=== PATIENT | male | born 1940 | race Caucasian/White ===

== ENCOUNTER 2017-10-23 14:48 | Emergency (ER) | payer MEDICARE, OTHER ==
--- NOTE | 2017-10-23 15:15 | ED Physician Documentation ---
PD HPI CHEST PAIN - Stated complaint Stated Complaint: CHEST PX - Chief complaint Chief Complaint: Cardiac - History obtained from History obtained from: Patient - History of Present Illness Timing - onset: Other (He has been under a lot of personal stress lately, his daughter recently and has to take care of his grandson. The last 2 weeks he has had very mild exertional chest pain that goes away quickly when he stops exerting himself. It is a substernal pressure that is too mild to characterize otherwise. There is no radiation or shortness of breath with it. There is no chest pain currently. He has a history of chronic atrial fibrillation on warfarin. No history of coronary disease.) Review of Systems Constitutional: denies: Fever, Chills Cardiac: denies: Palpitations, Pedal edema, Calf pain Respiratory: denies: Dyspnea, Cough GI: denies: Abdominal Pain PD PAST MEDICAL HISTORY - Past Medical History Cardiovascular: Hypertension, Atrial fibrillation Respiratory: None Endocrine/Autoimmune: Type 1 diabetes, HyPOthyroidism GI: None : None HEENT: Glaucoma Psych: None Musculoskeletal: None - Past Surgical History Past Surgical History: No General: Hiatal hernia repair, Colonoscopy - Present Medications Home Medications: Ambulatory Orders Medication Instructions Recorded Confirmed Insulin Glargine,Hum.rec.anlog 20 unit SQ BID 02/08/13 10/26/14 [Lantus] Levothyroxine Sodium [Synthroid] 88 mcg PO DAILY 02/08/13 10/26/14 Metformin HCl [Glucophage] 500 mg PO BID 02/08/13 10/26/14 Warfarin Sodium [Coumadin] 5 mg PO DAILY 02/08/13 10/26/14 Carvedilol 25 mg PO DAILY 10/26/14 10/26/14 Losartan [Cozaar] 100 mg PO DAILY 10/26/14 10/26/14 Nitroglycerin 0.4 mg SL ONCE #1 bot 10/23/17 - Allergies Allergies/Adverse Reactions: Allergies Allergy/AdvReac Type Severity Reaction Status Date / Time Shrimp Allergy Mild Nausea Uncoded 10/23/17 15:02 - Social History Does the pt smoke?: No Smoking Status: Former smoker Does the pt drink ETOH?: No PD ED PE NORMAL - Vitals Vital signs reviewed: Yes - General General: Alert and oriented X 3, No acute distress - HEENT HEENT: PERRL, Pharynx benign - Neck Neck: Supple, no meningeal sign, No bony TTP - Cardiac Cardiac: Other (Irregularly irregular without murmur) - Respiratory Respiratory: No respiratory distress, Clear bilaterally - Abdomen Abdomen: Non tender - Extremities Extremities: No edema, No calf tenderness / cord - Neuro Neuro: Alert and oriented X 3, Normal speech - Psych Psych: Normal mood, Normal affect Results - Vitals Vitals: Vital Signs - 24 hr 10/23/17 10/23/17 14:56 15:15 Temperature 36.1 C L Heart Rate 73 82 Respiratory 16 16 Rate Blood Pressure 171/71 H 176/90 H O2 Saturation 97 98 Oxygen O2 Source Room air - EKG (time done) 1459 Rate: Rate (enter#) (77) Rhythm: Atrial fibrillation [place]: Normal Intervals: Other (LAFB) Ischemia: Normal ST segments Computer interpretation: Agree with computer - Labs Labs: Laboratory Tests 10/23/17 10/23/17 10/23/17 15:21 15:21 15:21 WBC 9.0 RBC 4.84 Hgb 14.5 Hct 43.9 MCV 90.8 MCH 30.0 MCHC 33.1 RDW 13.6 Plt Count 206 MPV 6.9 L Neut # 5.4 Lymph # 2.8 Keith # 0.6 Eos # 0.2 Baso # 0.0 Absolute Nucleated RBC 0.00 Nucleated RBC % 0.0 PT INR Sodium 137 Potassium 4.2 Chloride 102 Carbon Dioxide 27 Anion Gap 8.0 BUN 16 Creatinine 0.9 Estimated GFR (MDRD) 81 L Glucose 90 Calcium 9.3 Total Bilirubin 0.8 AST 29 ALT 29 Alkaline Phosphatase 47 Troponin I < 0.04 Total Protein 7.8 Albumin 4.5 Globulin 3.3 Albumin/Globulin Ratio 1.4 Lipase 34 10/23/17 15:21 WBC RBC Hgb Hct MCV MCH MCHC RDW Plt Count MPV Neut # Lymph # Keith # Eos # Baso # Absolute Nucleated RBC Nucleated RBC % PT 45.6 H INR 4.3 H Sodium Potassium Chloride Carbon Dioxide Anion Gap BUN Creatinine Estimated GFR (MDRD) Glucose Calcium Total Bilirubin AST ALT Alkaline Phosphatase Troponin I Total Protein Albumin Globulin Albumin/Globulin Ratio Lipase - Rads (name of study) CXR Radiology: EMP read contemporaneously (Mild cardiomegaly, no acute disease.) PD MEDICAL DECISION MAKING - ED course ED course: 77-year-old gentleman with history of atrial fibrillation but no history of coronary disease presents with exertional chest pain for 2 weeks that is not active now and at its worst is mild. He is he has a normal EKG except for A. fib and negative biomarkers. I spoke with Dr. Ochoa circulation worker for his physician they will expedite a stress test. Departure - Departure Disposition: 01 Home, Self Care Clinical Impression: Supratherapeutic INR Chest pain Qualifiers: Chest pain type: unspecified Qualified Code(s): R07.9 - Chest pain, unspecified Atrial fibrillation Qualifiers: Atrial fibrillation type: chronic Qualified Code(s): I48.2 - Chronic atrial fibrillation Condition: Good Record reviewed to determine appropriate education?: Yes Instructions: Nitroglycerin Long Act Dc, Angina Dc Prescriptions: Nitroglycerin 0.4 mg SL ONCE #1 bot Comments: Dr Shelley's office should be calling you to arrange for a stress test. Continue your meds except skip your coumadin tonight because your INR is 4.3. Return if worse or for persistent chest pain.
[2017-10-23 15:28] LABS: BASOPHILS % (AUTO) 0.3 %; EOSINOPHILS # (AUTO) 0.2 10^3/uL (0.0-0.7); EOSINOPHILS % (AUTO) 1.8 %; HGB - HEMOGLOBIN 14.5 g/dL (14.0-18.0); LYMPHOCYTES # (AUTO) 2.8 10^3/uL (1.5-3.5); LYMPHOCYTES % (AUTO) 30.9 %; MEAN CORPUSCULAR HGB CONC 33.1 g/dL (32.0-36.0); MEAN CORPUSCULAR VOLUME 90.8 fL (80.0-94.0); MEAN PLATELET VOLUME 6.9 fL (7.4-11.4); MONOCYTES # (AUTO) 0.6 10^3/uL (0.0-1.0); MONOCYTES % (AUTO) 7.1 %; NEUTROPHILS # (AUTO) 5.4 10^3/uL (1.5-6.6); NEUTROPHILS % (AUTO) 59.9 %; PLT - PLATELET COUNT 206 10^3/uL (130-450); RED BLOOD COUNT 4.84 10^6/uL (4.70-6.10); RED CELL DISTRIBUTION WIDTH 13.6 % (12.0-15.0)
[2017-10-23 15:33] VITALS: BP 176/90
[2017-10-23 15:34] LABS: INR 4.3 (0.8-1.2); PT - PROTHROMBIN TIME 45.6 secs (9.9-12.6)
[2017-10-23 15:41] LABS: ALBUMIN 4.5 g/dL (3.2-5.5); ALBUMIN/GLOBULIN RATIO 1.4 (1.0-2.2); BILIRUBIN,TOTAL 0.8 mg/dL (0.2-1.0); CALCIUM 9.3 mg/dL (8.5-10.3); CREATININE 0.9 mg/dL (0.6-1.2); TOTAL PROTEIN 7.8 g/dL (6.7-8.2)
--- NOTE | 2017-10-23 15:45 | XRAY Preliminary Report ---
Exam: XR CHEST 2 VIEW X-RAY IMPRESSION: Mild cardiomegaly. [facility] SITE ID: [id number]
--- NOTE | 2017-10-23 15:49 | XRAY Report ---
EXAM: CHEST RADIOGRAPHY EXAM DATE: 10/23/2017 03:36 PM. CLINICAL HISTORY: Chest pain, short of breath. COMPARISON: 02/09/2013. TECHNIQUE: 2 views. FINDINGS: Lungs/Pleura: 4 mm calcified granuloma left upper lobe. No new focal opacities evident. No pleural ef fusion. No pneumothorax. Normal volumes. Mediastinum: Stable mild cardiomegaly. No mediastinal shift. Other: None. IMPRESSION: Mild cardiomegaly. [facility] Referring Provider Line: [phone] SITE ID: [id number]
== END 2017-10-23 16:05 | disposition home or self-care (01) ==
LOC: ED 14:48
DX: R07.9 Chest pain, unspecified (principal); I48.2 Chronic atrial fibrillation; E10.9 Type 1 diabetes mellitus without complications; E03.9 Hypothyroidism, unspecified; I10 Essential (primary) hypertension; Z87.891 Personal history of nicotine dependence; Z79.01 Long term (current) use of anticoagulants
CPT/HCPCS: 36415; 71046; 80053; 83690; 84484; 85025; 85610; 93005; 99283; 99284

== ENCOUNTER 2017-11-20 05:21 | Observation (INO) | payer MEDICARE, OTHER ==
[2017-11-20] MEDS ORDERED: IPRATROPIUM/ALBUTEROL 3 ML NEB INH STA (05:27)
[2017-11-20] MEDS ORDERED: SODIUM CHLORIDE 0.9% 1,000 ML IV ONE (05:35)
[2017-11-20 05:42] LABS: BASOPHILS # (AUTO) 0.1 10^3/uL (0.0-0.1); BASOPHILS % (AUTO) 0.7 %; EOSINOPHILS # (AUTO) 0.1 10^3/uL (0.0-0.7); HGB - HEMOGLOBIN 13.1 g/dL (14.0-18.0); LYMPHOCYTES % (AUTO) 13.5 %; MEAN CORPUSCULAR HEMOGLOBIN 30.4 pg (27.0-31.0); MEAN CORPUSCULAR HGB CONC 33.1 g/dL (32.0-36.0); MEAN CORPUSCULAR VOLUME 91.8 fL (80.0-94.0); MEAN PLATELET VOLUME 6.6 fL (7.4-11.4); MONOCYTES # (AUTO) 1.3 10^3/uL (0.0-1.0); NEUTROPHILS # (AUTO) 11.1 10^3/uL (1.5-6.6); NEUTROPHILS % (AUTO) 75.8 %; PLT - PLATELET COUNT 264 10^3/uL (130-450); RED BLOOD COUNT 4.32 10^6/uL (4.70-6.10); RED CELL DISTRIBUTION WIDTH 13.5 % (12.0-15.0); WHITE BLOOD COUNT 14.7 x10^3/uL (4.8-10.8)
[2017-11-20 05:56] LABS: ALBUMIN 3.5 g/dL (3.2-5.5); ALBUMIN/GLOBULIN RATIO 0.9 (1.0-2.2); BILIRUBIN,TOTAL 0.8 mg/dL (0.2-1.0); CALCIUM 8.3 mg/dL (8.5-10.3); CREATININE 1.1 mg/dL (0.6-1.2); TOTAL PROTEIN 7.3 g/dL (6.7-8.2)
--- NOTE | 2017-11-20 06:11 | XRAY Report ---
Procedure Date: 11/20/2017 Accession Number: [id number] / [id number] Procedure: XR - Chest 2 View X-Ray CPT Code: 73455 FULL RESULT: EXAM: CHEST RADIOGRAPHY EXAM DATE: 11/20/2017 05:47 AM. CLINICAL HISTORY: Non productive cough for 4 days. COMPARISON: 10/23/2017. TECHNIQUE: 2 views. FINDINGS: Lungs/Pleura: Bilateral interstitial and airspace opacities, right worse than left. Small right pleural effusion. Pulmonary vascular congestion. No pneumothorax. Mediastinum: Heart size upper normal. Aortic atherosclerosis. Other: None. IMPRESSION: 1. Borderline cardiomegaly with pulmonary vascular congestion. 2. Asymmetric pulmonary opacities, right worse than left, likely representing pulmonary edema. Infiltrate not entirely excluded. 3. Small right pleural effusion. [facility]
[2017-11-20] MEDS ORDERED: ALBUTEROL NEB 2.5 MG/3 ML INH STA (06:13)
[2017-11-20] MEDS ORDERED: methylPREDNISolone SUCCINATE 125 MG/2 ML VIAL IVP STA (06:13)
--- NOTE | 2017-11-20 06:20 | ED Physician Documentation ---
PD HPI DYSPNEA - Stated complaint Stated Complaint: DIFF BREATHING - Chief complaint Chief Complaint: Resp - History obtained from History obtained from: Patient - History of Present Illness Timing - onset: How many days ago (4) Timing - details: Gradual onset, Still present Inciting event(s): URI Worsened by: Exertion Associated symptoms: Cough, Wheezing. No: Fever, Chest pain / discomfort Similar symptoms before: No diagnosis Recently seen: Not recently seen - Additional information Additional information: Patient is a 77 year old male with a history of afib, angina and 20 pack year history who is presenting to the emergency department for cough and shortness of breath. patient states that the symptoms have been going on for the last 4 days. it has become progressively worse today so he finally decided to come in. Review of Systems Constitutional: denies: Fever, Chills Eyes: reports: Reviewed and negative Ears: reports: Reviewed and negative Cardiac: denies: Chest pain / pressure, Pedal edema Respiratory: reports: Dyspnea, Cough, Wheezing GI: denies: Nausea, Vomiting Skin: denies: Rash, Lesions Immunocompromised: denies: Immunocompromised PD PAST MEDICAL HISTORY - Past Medical History Past Medical History: Yes Cardiovascular: Hypertension, Atrial fibrillation Respiratory: Pneumonia Endocrine/Autoimmune: Type 2 diabetes, HyPOthyroidism GI: None : None HEENT: Glaucoma Psych: None Musculoskeletal: None - Past Surgical History Past Surgical History: Yes General: Hiatal hernia repair, Colonoscopy - Present Medications Home Medications: Ambulatory Orders Medication Instructions Recorded Confirmed Insulin Glargine,Hum.rec.anlog 20 unit SQ BID 02/08/13 10/26/14 [Lantus] Levothyroxine Sodium [Synthroid] 88 mcg PO DAILY 02/08/13 10/26/14 Metformin HCl [Glucophage] 500 mg PO BID 02/08/13 10/26/14 Warfarin Sodium [Coumadin] 5 mg PO DAILY 02/08/13 10/26/14 Carvedilol 25 mg PO DAILY 10/26/14 10/26/14 Losartan [Cozaar] 100 mg PO DAILY 10/26/14 10/26/14 Nitroglycerin 0.4 mg SL ONCE #1 bot 10/23/17 - Allergies Allergies/Adverse Reactions: Allergies Allergy/AdvReac Type Severity Reaction Status Date / Time Shrimp Allergy Mild Nausea Uncoded 10/23/17 15:02 - Social History Does the pt smoke?: No Smoking Status: Current every day smoker Does the pt drink ETOH?: No Does the pt have substance abuse?: No - Immunizations Immunizations are current?: Yes - POLST Patient has POLST: No PD ED PE NORMAL - Vitals Vital signs reviewed: Yes - General General: Alert and oriented X 3 - HEENT HEENT: Atraumatic - Abdomen Abdomen: Soft, Non tender, Non distended - Derm Derm: Normal color - Extremities Extremities: No deformity - Neuro Neuro: Alert and oriented X 3, No motor deficit Eye Opening: Spontaneous Motor: Obeys Commands Verbal: Oriented GCS Score: 15 PD ED PE EXPANDED - HEENT HEENT: Dry mucous membranes - Cardiac Cardiac: Irregularly irregular - Respiratory Respiratory: Accessory mm use, Wheezing, Decreased breath sounds, Other ( wheezing bilaterally upper navas, decreased breath sounds at bases) Results - Vitals Vitals: Vital Signs - 24 hr 11/20/17 11/20/17 11/20/17 05:26 05:42 05:51 Temperature 36.5 C Heart Rate 85 96 100 Respiratory 22 22 22 Rate Blood Pressure 150/94 H O2 Saturation 95 11/20/17 06:02 Temperature Heart Rate 95 Respiratory 27 H Rate Blood Pressure 124/77 O2 Saturation 93 Oxygen O2 Source Room air - EKG (time done) 0534 Rate: Rate (enter#) (109) Rhythm: Atrial fibrillation [place]: LAD Compare to prior EKG: Changed from prior EKG - Labs Labs: Laboratory Tests 11/20/17 11/20/17 11/20/17 05:36 05:36 05:36 WBC 14.7 H RBC 4.32 L Hgb 13.1 L Hct 39.6 L MCV 91.8 MCH 30.4 MCHC 33.1 RDW 13.5 Plt Count 264 MPV 6.6 L Neut # (Auto) 11.1 H Lymph # (Auto) 2.0 Harper # (Auto) 1.3 H Eos # (Auto) 0.1 Baso # (Auto) 0.1 Absolute Nucleated RBC 0.00 Nucleated RBC % 0.0 Sodium 131 L Potassium 4.3 Chloride 102 Carbon Dioxide 20 L Anion Gap 9.0 BUN 25 H Creatinine 1.1 Estimated GFR (MDRD) 65 L Glucose 188 H Lactic Acid Calcium 8.3 L Total Bilirubin 0.8 AST 19 ALT 21 Alkaline Phosphatase 53 Troponin I 0.04 B-Natriuretic Peptide Total Protein 7.3 Albumin 3.5 Globulin 3.8 Albumin/Globulin Ratio 0.9 L Lipase 39 11/20/17 11/20/17 05:36 05:36 WBC RBC Hgb Hct MCV MCH MCHC RDW Plt Count MPV Neut # (Auto) Lymph # (Auto) Harper # (Auto) Eos # (Auto) Baso # (Auto) Absolute Nucleated RBC Nucleated RBC % Sodium Potassium Chloride Carbon Dioxide Anion Gap BUN Creatinine Estimated GFR (MDRD) Glucose Lactic Acid 1.6 Calcium Total Bilirubin AST ALT Alkaline Phosphatase Troponin I B-Natriuretic Peptide 399 H Total Protein Albumin Globulin Albumin/Globulin Ratio Lipase - Rads (name of study) chest x-ray Radiology: Final report received (pulmonary vascular congestion, infiltrate) PD MEDICAL DECISION MAKING - ED course Complexity details: reviewed old records, reviewed results, re-evaluated patient , considered differential, d/w patient, d/w strategic solutions consultant ED course: Patient was seen and examined at bedside. Patient was started on breathing treatments. ekg was performed and showed a fib. IV access was gained and labs were drawn. chest x-ray was ordered. When patient returned from imaging results were reviewed. Patient had a ride sided infiltrate. Cultures were drawn. patient was treated with rocephin, solumedrol and an additional duoneb was ordered. Case was discussed with the hospitalist. - Sepsis Event Vital Signs: Vital Signs - 24 hr 11/20/17 11/20/17 11/20/17 05:26 05:42 05:51 Temperature 36.5 C Heart Rate 85 96 100 Respiratory 22 22 22 Rate Blood Pressure 150/94 H O2 Saturation 95 11/20/17 06:02 Temperature Heart Rate 95 Respiratory 27 H Rate Blood Pressure 124/77 O2 Saturation 93 Oxygen O2 Source Room air Departure - Departure Disposition: ED Place in Observation Clinical Impression: Moderate COPD (chronic obstructive pulmonary disease), Pneumonia Condition: Stable
[2017-11-20] MEDS ORDERED: cefTRIAXone 1 GM in SODIUM CHLORIDE 0.9% MINIBAG 100 ML IV STA (06:22)
[2017-11-20] MEDS ORDERED: ONDANSETRON 4 MG/2 ML VIAL IVP PRN (06:25)
[2017-11-20] MEDS ORDERED: oxyCODONE 5 MG TABLET PO PRN (06:25)
[2017-11-20] MEDS ORDERED: ONDANSETRON ODT 4 MG TABLET TL PRN (06:25)
[2017-11-20] MEDS ORDERED: ACETAMINOPHEN 325 MG TABLET PO PRN (06:25)
[2017-11-20] MEDS ORDERED: ALBUTEROL NEB 2.5 MG/3 ML INH PRN (06:29)
[2017-11-20 07:17] LABS: INR 1.9 (0.8-1.2)
[2017-11-20] MEDS ORDERED: LEVOTHYROXINE 88 MCG TABLET PO SCH (07:30)
[2017-11-20] MEDS ORDERED: NITROGLYCERIN SL 0.4 MG TABLET SL SCH (07:45)
[2017-11-20] MEDS ORDERED: INSULIN GLARGINE HUM REC ANLOG 20 UNIT SQ SCH (09:00)
[2017-11-20] MEDS ORDERED: CARVEDILOL 12.5 MG TABLET PO SCH (09:00)
[2017-11-20] MEDS ORDERED: WARFARIN 5 MG TABLET PO SCH ×3 (09:00→12:00)
[2017-11-20 09:32] LABS: HB2 TOTAL 14.7 g/dL; HEMOGLOBIN A1C 0.79 g/dL; HEMOGLOBIN A1C % 7.1 % (4.6-6.2)
[2017-11-20] MEDS: LOSARTAN 50 MG TABLET PO SCH (11:10)
[2017-11-20] MEDS: CARVEDILOL 12.5 MG TABLET PO SCH (11:11)
[2017-11-20] MEDS: AZITHROMYCIN INJ 500 MG in SODIUM CHLORIDE 0.9% 250 ML IV SCH (11:20)
[2017-11-20] MEDS: SACCHAROMYCES BOULARDII 250 MG CAPSULE PO SCH ×2 (11:28→17:06)
[2017-11-20] MEDS: methylPREDNISolone SUCCINATE 40 MG/ML VIAL IVP SCH ×3 (11:29→21:19)
[2017-11-20] MEDS: SODIUM CHLORIDE FLUSH 0.9% 10 ML SYRINGE IVP SCH ×4 (11:29→23:53)
[2017-11-20] MEDS: ISOSORBIDE MONONITRATE ER 30 MG TABLET PO SCH (11:37)
[2017-11-20] MEDS: POLYETHYLENE GLYCOL 3350 17 GM PACKET PO SCH (11:38)
[2017-11-20] MEDS ORDERED: INSULIN ASPART 300 UNIT/3 ML PEN SUBQ SCH (12:00)
[2017-11-20] MEDS: IPRATROPIUM/ALBUTEROL 3 ML NEB INH SCH ×4 (12:15→19:09)
--- NOTE | 2017-11-20 12:33 | PROVIDER PROGRESS NOTE ---
Subjective - Prog Note Date Prog Note Date: 11/20/17 - Subjective Pt reports feeling: Improved Subjective: pt state he feel much better than yesterday. No cough, fever, chill. pt report mild wheezing inh/exh. Current Medications - Current Medications Current Medications: Active Medications Acetaminophen (Tylenol) 650 mg PO Q4HR PRN PRN Reason: Pain 1 to 4 Albuterol () 2.5 mg INH RTQ4H PRN PRN Reason: Wheezing Albuterol/Ipratropium (Duoneb) 3 ml INH RTQID HELIO Stop: 11/21/17 06:59 Last Admin: 11/20/17 12:15 Dose: 3 ml Atorvastatin Calcium (Lipitor) 20 mg PO QPM [facility] Brimonidine Tartrate (Alphagan P 0.15% Ophth Drops) 1 drops RIGHTEYE BID [facility] Carvedilol (Coreg) 25 mg PO BID [facility] Last Admin: 11/20/17 11:11 Dose: 25 mg Furosemide (Lasix) 20 mg PO DAILY [facility] Azithromycin 500 mg/ Sodium (Chloride) 250 mls @ 250 mls/hr IV Q24H [facility] Last Admin: 11/20/17 11:20 Dose: 250 mls/hr Ceftriaxone Sodium 2 gm/ (Sodium Chloride) 100 mls @ 200 mls/hr IV Q24H [facility] Insulin Aspart (Novolog) 2 - 10 unit SUBQ 0800,1200,1700,2100 HELIO PRN Reason: Protocol Insulin Aspart (Novolog) 5 unit SUBQ ONCE ONE Stop: 11/20/17 17:01 Insulin Glargine (Lantus Solostar) 25 unit SUBQ BID [facility] Isosorbide Mononitrate (Imdur) 60 mg PO DAILY [facility] Last Admin: 11/20/17 11:37 Dose: Not Given Latanoprost (Xalatan Ophth Drops) 1 drops EACHEYE QPM [facility] Levothyroxine Sodium (Synthroid) 88 mcg PO QDAC [facility] Last Admin: 11/20/17 11:12 Dose: 88 mcg Levothyroxine Sodium (Synthroid) 100 mcg PO QDAC [facility] Levothyroxine Sodium (Synthroid) 75 mcg PO QDAC [facility] Losartan Potassium (Cozaar) 100 mg PO DAILY [facility] Last Admin: 11/20/17 11:10 Dose: 100 mg Methylprednisolone (Solu-Medrol (40mg Vial)) 20 mg IVP TID [facility] Last Admin: 11/20/17 11:29 Dose: 20 mg Ondansetron HCl (Zofran Inj) 4 mg IVP Q6HR PRN PRN Reason: Nausea / Vomiting Ondansetron HCl (Zofran Odt) 4 mg TL Q6HR PRN PRN Reason: Nausea / Vomiting Oxycodone HCl (Roxicodone) 5 mg PO Q4HR PRN PRN Reason: Pain 5 to 7 Polyethylene Glycol (Miralax) 17 gm PO DAILY [facility] Last Admin: 11/20/17 11:38 Dose: Not Given Saccharomyces Boulardii (Florastor) 250 mg PO BIDWM [facility] Last Admin: 11/20/17 11:28 Dose: 250 mg Sodium Chloride (Normal Saline Flush 0.9%) 10 ml IVP PRN PRN PRN Reason: NEEDED PER PROVIDER ORDERS Sodium Chloride (Normal Saline Flush 0.9%) 10 ml IVP 0100,0900,1700 [facility] Last Admin: 11/20/17 11:29 Dose: 10 ml Timolol Maleate (Timoptic 0.5% Ophth Drops) 1 drops EACHEYE BID [facility] Warfarin Sodium (Coumadin) 2.5 mg PO .QFRIDAY [facility] Warfarin Sodium (Coumadin) 5 mg PO .[facility] [place] [facility] [place] Insulin Glargine,Hum.rec.anlog [Lantus] 50 - 70 unit SQ QPM 02/08/13 Warfarin Sodium [Coumadin] 5 mg PO .QSUMOTUWEDTHUSA 02/08/13 Carvedilol 25 mg PO BID 10/26/14 Losartan [Cozaar] 100 mg PO DAILY 10/26/14 Brimonidine 0.15% Ophth Drops [Alphagan P 0.15% Ophth Drops] 1 drops RIGHTEYE BID 11/20/17 Insulin Lispro [Humalog Kwikpen U-100] 1 - 10 unit SUBQ TID PRN 11/20/17 Isosorbide Mononitrate [Isosorbide Mononitrate ER] 60 mg PO DAILY 11/20/17 Latanoprost [Latanoprost] 1 drops EACHEYE QPM 11/20/17 Levothyroxine Sodium [Synthroid] 175 mcg PO DAILY 11/20/17 Metformin HCl [Metformin HCl] 1,000 mg PO BID 11/20/17 Simvastatin [Simvastatin] 40 mg PO QPM 11/20/17 Timolol Maleate 1 drops EACHEYE BID 11/20/17 Warfarin [Coumadin] 2.5 mg PO .QFRIDAY 11/20/17 Zolpidem Tartrate [Ambien] 10 mg PO QPM 11/20/17 Active Medications Acetaminophen (Tylenol) 650 mg PO Q4HR PRN PRN Reason: Pain 1 to 4 Albuterol () 2.5 mg INH RTQ4H PRN PRN Reason: Wheezing Albuterol/Ipratropium (Duoneb) 3 ml INH RTQID HELIO Stop: 11/21/17 06:59 Last Admin: 11/20/17 12:15 Dose: 3 ml Atorvastatin Calcium (Lipitor) 20 mg PO QPM [facility] Brimonidine Tartrate (Alphagan P 0.15% Ophth Drops) 1 drops RIGHTEYE BID [facility] Carvedilol (Coreg) 25 mg PO BID [facility] Last Admin: 11/20/17 11:11 Dose: 25 mg Furosemide (Lasix) 20 mg PO DAILY [facility] Azithromycin 500 mg/ Sodium (Chloride) 250 mls @ 250 mls/hr IV Q24H [facility] Last Admin: 11/20/17 11:20 Dose: 250 mls/hr Ceftriaxone Sodium 2 gm/ (Sodium Chloride) 100 mls @ 200 mls/hr IV Q24H [facility] Insulin Aspart (Novolog) 2 - 10 unit SUBQ 0800,1200,1700,2100 [facility] PRN Reason: Protocol Insulin Aspart (Novolog) 5 unit SUBQ ONCE ONE Stop: 11/20/17 17:01 Insulin Glargine (Lantus Solostar) 25 unit SUBQ BID [facility] Isosorbide Mononitrate (Imdur) 60 mg PO DAILY [facility] Last Admin: 11/20/17 11:37 Dose: Not Given Latanoprost (Xalatan Ophth Drops) 1 drops EACHEYE QPM [facility] Levothyroxine Sodium (Synthroid) 88 mcg PO QDAC [facility] Last Admin: 11/20/17 11:12 Dose: 88 mcg Levothyroxine Sodium (Synthroid) 100 mcg PO QDAC [facility] Levothyroxine Sodium (Synthroid) 75 mcg PO QDAC [facility] Losartan Potassium (Cozaar) 100 mg PO DAILY [facility] Last Admin: 11/20/17 11:10 Dose: 100 mg Methylprednisolone (Solu-Medrol (40mg Vial)) 20 mg IVP TID [facility] Last Admin: 11/20/17 11:29 Dose: 20 mg Ondansetron HCl (Zofran Inj) 4 mg IVP Q6HR PRN PRN Reason: Nausea / Vomiting Ondansetron HCl (Zofran Odt) 4 mg TL Q6HR PRN PRN Reason: Nausea / Vomiting Oxycodone HCl (Roxicodone) 5 mg PO Q4HR PRN PRN Reason: Pain 5 to 7 Polyethylene Glycol (Miralax) 17 gm PO DAILY [facility] Last Admin: 11/20/17 11:38 Dose: Not Given Saccharomyces Boulardii (Florastor) 250 mg PO BIDWM [facility] Last Admin: 11/20/17 11:28 Dose: 250 mg Sodium Chloride (Normal Saline Flush 0.9%) 10 ml IVP PRN PRN PRN Reason: NEEDED PER PROVIDER ORDERS Sodium Chloride (Normal Saline Flush 0.9%) 10 ml IVP 0100,0900,1700 [facility] Last Admin: 11/20/17 11:29 Dose: 10 ml Timolol Maleate (Timoptic 0.5% Ophth Drops) 1 drops EACHEYE BID [facility] Warfarin Sodium (Coumadin) 2.5 mg PO .QFRIDAY [facility] Warfarin Sodium (Coumadin) 5 mg PO .QSATSUNMONTUEWEDTHU [facility] Insulin Glargine,Hum.rec.anlog [Lantus] 50 - 70 unit SQ QPM 02/08/13 Warfarin Sodium [Coumadin] 5 mg PO .QSUMOTUWEDTHUSA 02/08/13 Carvedilol 25 mg PO BID 10/26/14 Losartan [Cozaar] 100 mg PO DAILY 10/26/14 Brimonidine 0.15% Ophth Drops [Alphagan P 0.15% Ophth Drops] 1 drops RIGHTEYE BID 11/20/17 Insulin Lispro [Humalog Kwikpen U-100] 1 - 10 unit SUBQ TID PRN 11/20/17 Isosorbide Mononitrate [Isosorbide Mononitrate ER] 60 mg PO DAILY 11/20/17 Latanoprost [Latanoprost] 1 drops EACHEYE QPM 11/20/17 Levothyroxine Sodium [Synthroid] 175 mcg PO DAILY 11/20/17 Metformin HCl [Metformin HCl] 1,000 mg PO BID 11/20/17 Simvastatin [Simvastatin] 40 mg PO QPM 11/20/17 Timolol Maleate 1 drops EACHEYE BID 11/20/17 Warfarin [Coumadin] 2.5 mg PO .QFRIDAY 11/20/17 Zolpidem Tartrate [Ambien] 10 mg PO QPM 11/20/17 Objective - Vital Signs/Intake & Output Reviewed Vital Signs: Yes Vital Signs: Vital Signs x48h Temp Pulse Pulse Resp BP BP Pulse Ox 11/20/17 11:42 36.9 C 86 16 129/71 94 11/20/17 08:41 88 18 89/57 L 91 L 11/20/17 06:57 92 23 137/74 H 94 11/20/17 06:29 91 24 Intake & Output: Intake & Output 11/17/17 11/18/17 11/19/17 11/20/17 23:59 23:59 23:59 23:59 Intake Total 1340 Balance 1340 - Objective General Appearance: positive: No acute distress, Alert. negative: Lethargic Eyes Bilateral: positive: Normal inspection, PERRL, No lid inflammation, Conjunctivae nml ENT: positive: ENT inspection nml, Pharynx nml, No signs of dehydration. negative: Purulent nasal drainage, Pharyngeal erythema, Oral lesions, Dry mucous membranes Neck: positive: Nml inspection, Thyroid nml, No JVD, Trachea midline. negative : Thyromegaly, Lymphadenopathy (R), Lymphadenopathy (L), Stiff neck, Carotid bruit, Swelling/bruising, Tracheal deviation Respiratory: positive: Chest non-tender, No respiratory distress, Breath sounds nml, Wheezes. negative: Rales, Rhonchi Cardiovascular: positive: Regular rate & rhythm, No murmur, No gallop. negative : Irregularly irregular, Extrasystoles, Tachycardia, Bradycardia, JVD present, Systolic murmur, Diastolic murmur Peripheral Pulses: 2+ Radial (R), 2+ Radial (L), 2+ Dorsalis pedis (R), 2+ Dorsalis pedis (L) Abdomen: positive: Non-tender, No organomegaly, Nml bowel sounds, No distention. negative: Tenderness, Guarding, Rebound Back: positive: Nml inspection. negative: CVA tenderness (R), CVA tenderness (L ) Skin: positive: Color nml, No rash, Warm, Dry. negative: Cyanosis, Diaphoresis , Pallor Extremities: positive: Non-tender, Full ROM, Nml appearance. negative: Calf tenderness, Joint swelling, Everton's sign/cords Neurologic/Psychiatric: positive: Oriented x3, Motor nml, Sensation nml, Mood/ affect nml. negative: Sensory loss, Facial droop, Slurred/abnml speech, Depressed mood/affect - Lab Results Fish Bones: 11/20/17 05:36 11/20/17 05:36 Other Labs: Lab Results x24hrs 11/20/17 Range/Units 11:34 POC Whole Bld Glucose 345 H (70 - 100) mg/dL ABX Reporting Has patient been on IV antibiotics over the past 48 hours?: Yes Assessment/Plan - Problem List (1) Pneumonia Impression: pt present SOB, cough , wheezing for 4 days. CXR reveals right worsening than left with possible pneumonia, pulmonary congestion, and elevated WBC Rocephin Azith Lasix 20 mg po for pulmonary congestion and wheezing albuterol, duoneb PRN O2 supplement as needed daily lab and vital monitor (2) HTN (hypertension) Impression: stable, resume home medication. vital monitor (3) Afib Impression: stable HR, continue home meds and Coumadin tele and vital monitor PT/INR daily (4) Diabetes 1.5, managed as type 2 Impression: A1C 7.1, continue slide scale continue home insulin continue hypoglycemia protocol daily lab, vital monitor (6) Hypothyroidism Impression: resume of home meds Synth check TSH (7) Glaucoma Impression: no acute complaint resume home meds
[2017-11-20] MEDS: SODIUM CHLORIDE FLUSH 0.9% 10 ML SYRINGE IVP PRN ×3 (12:36→21:19)
[2017-11-20] MEDS: BRIMONIDINE 0.15% OPHTH DROPS 5 ML RIGHTEYE SCH ×2 (12:37→21:29)
--- NOTE | 2017-11-20 12:41 | HISTORY & PHYSICAL EXAMINATION ---
DATE OF SERVICE: 11/20/2017 Physician: Annalisa Ahn MD PRIMARY CARE PROVIDER: Tray Shelley M.D. ADMITTING PROVIDER: Annalisa Ahn M.D. CHIEF COMPLAINT: Cough and shortness of breath with gurgling and whistling. HISTORY OF PRESENT ILLNESS: He is an elderly gentleman who used to smoke. Started smoking at age 6 and quit smoking at the age of 48. Smoked 1/2 pack per day. He has developed reactive airways disease since that time. He was hospitalized in 2012 for generalized weakness where he just could not get out of bed for days. He was found to have pneumonia. Since that time, he has done well. He does not take oxygen at home. Does not do nebulizers at home, but he started developing a phlegmy cough a few days ago. It has gotten increasingly worse. He finally came in today, early this morning, because the cough was so bad. He says that he has been eating okay. He has no change in bowel habits. No diarrhea, no abdominal pain. The phlegm is copious, yellow, thick. No hemoptysis. Denies fever, chills. Denies any chest pain. Denies any pedal edema or orthopnea. He does have chronic atrial fibrillation, and he states that his rate is controlled. He is not feeling any palpitations or that it is any worse than usual. He was evaluated in the emergency room by Dr. Oleary and was found to have small asymmetric opacities, right worse than left, likely representing pulmonary edema. Infiltrate is not entirely excluded. He has a small right pleural effusion. The patient does have a previous echocardiogram. It was done at [facility] and read by the [facility]. This was back in 2007. It was a technically adequate study. Left ventricle systolic function was normal. Left and right atrium were mildly dilated. He did not have any significant valvular heart disease. The echocardiogram had actually been done because he had a murmur prior to his colonoscopy that was done that year. The auto mechanic wanted to make sure there was not anything being missed. The patient states that he does have a little bit of edema every once in awhile, but is not any worse than usual. PAST MEDICAL HISTORY 1. Type 2 diabetes mellitus, with complications of neuropathy, on long-term use of Lantus. He does not have diabetic retinopathy. 2. Hypertension. 3. Chronic atrial fibrillation. 4. Hypothyroidism. 5. Right inguinal hernia repair, approximately 1992. 6. Right cataract extraction with intraocular lens implant. ALLERGIES: HE IS ALLERGIC TO SHELLFISH. MEDICATIONS 1. Carvedilol 25 mg p.o. b.i.d. 2. Lantus 20 units at night. 3. Levothyroxine 88 mcg daily. 4. Losartan 100 mg daily. 5. Metformin 500 mg p.o. b.i.d. before meals. 6. Sublingual nitroglycerin p.r.n. 7. Coumadin 5 mg daily. SOCIAL HISTORY: Born in [place]. Went into the [employer] and retired at the age of 74 and worked in [place]. He is . He came to the [place] in [place] and has been here since. 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 He currently lives alone. Started smoking at the age of 6. Quit smoking at the age of 48 and smoked half a pack per day. He says that he never had a problem with alcohol abuse. Never had any problems with recreational substance abuse. FAMILY HISTORY 1. Mom around age 83 of old age. Dad in his 40s of bilateral pneumonia while in retirement. Apparently, he is a [employer] socialist [employer] party member ([employer]) and was not a popular man in the day. 2. One brother at a young age of unknown causes. His sister a month and a half ago, falling off a porch and breaking her neck. She was 82 years old. 3. Two kids are healthy. REVIEW OF SYSTEMS CONSTITUTIONAL: He denies any generalized weight loss, changes, no fevers, sweats. HEENT: Denies blurred vision, headaches, problems with swallowing. Dentition is getting to be a problem. No facial dysesthesia. A little deaf. PULMONARY: Chronic daily shortness of breath that sometimes limits him if he wants to walk too far, but he can still do all of his activities of daily living. Still takes care of himself and he does not feel like he needs help. CARDIOVASCULAR: Has been given nitroglycerin for chest pain that he has never used. Has chronic mild pedal edema. Denies orthopnea. GASTROINTESTINAL: Occasional dyspepsia, but no bloody diarrhea. No change in bowel habits. Colonoscopy in the past has been negative. GENITOURINARY: Nocturia, decreased stream, but no urgency, frequency, incontinence. No hematuria, no flank pain. JOINTS: Stable. Usual morning stiffness, but nothing severe. Hands worse. Occasionally back. SKIN: Had a weird rash years ago. Dr. Shelley tried stopping different drugs, and they never found out what it was, but it responded to steroids. He has no new lesions, no moles. PSYCHIATRIC: Occasional depression. Occasional loneliness. Not suicidal. CENTRAL NERVOUS SYSTEM: Denies syncope, seizures, memory loss. PHYSICAL EXAMINATION: He is seen in the emergency room with a temperature 36.5, pulse rate is 95 and irregular, blood pressure is 124/77, respirations are 27, and he is 93% on room air. The 27 is because I am talking to him. When he is not talking and he is at rest, he is at about 22. GENERAL: Shows him to be a short-statured portly elderly gentleman with a armendariz, pursed lip breathing because of my making him speak during his exam. HEAD AND NECK: Unremarkable. Lips are a little dry. Oral mucosa is little dry, but pink. Pupils are reactive. Sclerae are nonicteric. No facial asymmetry. Voice is normal. He does have a nasal tone of voice. No rhinorrhea, no coryza. NECK: Supple with shotty adenopathy. No goiter or bruits or JVD. LUNGS: In a barrel chest. He has diffuse scattered wheezing. While he has mild tachypnea, there is no use of accessory muscles. He is comfortable speaking to me in bed and speaking 1-2 sentences, but is still pursed lip breathing. CARDIAC: Irregular rate and rhythm with a flow murmur. No rubs or gallops. ABDOMEN: Protuberant, soft, obese, nontender. Normal bowel sounds. EXTREMITIES: Warm. He has light edema. Mainly manifested by the compression of the socks, but otherwise, nonpitting. No clubbing or cyanosis. NEUROLOGIC: He is alert and oriented to person, place, and time, follows 2 step commands. Able to sit up on the bed, but it increases his respiratory rate. No focal deficits. LABORATORY DATA 1. Sodium is 131. 2. Potassium 4.3. 3. BUN 25. 4. Creatinine 1.1. 5. Lactic acid 1.6. 6. BNP 399. 7. White cell count 14.7. 8. Hemoglobin 13.1, hematocrit 39.6, platelets 264. 9. Chest x-ray shows small right pleural effusion, infiltrates at both lungs, suggestive of possible pulmonary edema, but a right lung pneumonia cannot be excluded since interstitial markings appear worse on the right than the left. ASSESSMENT/PLAN: Community-acquired pneumonia. This gentleman has had a change in phlegm, increasing shortness of breath. He is compliant with his medications, so in the differential of CHF versus pneumonia, I would lean more towards pneumonia because of the phlegm, elevated white cell count. PLAN 1. Place in observation. The patient is adamant that he will be leaving tomorrow for his twin granddaughters' graduation from high school and has to be there in the evening. He denies any problems with appetite. He is able to take care of himself, so I agree with him that he may be able to leave tomorrow after 1 midnight. a. Outpatient: The patient will be admitted less than 96 hours. b. Blood cultures have been done before antibiotic started. c. Start azithromycin and Rocephin. d. Send sputum cultures. 2. Chronic obstructive pulmonary disease with acute exacerbation. No hypoxia. a. Start DuoNeb q. 6 hours and add albuterol 4 hours p.r.n., IV steroids with Solu-Medrol 40 IV every 8 hours. 3. History of atrial fibrillation. a. Check INR. b. Continue Coumadin and monitor INR. Make sure he does not get prolonged in the face of use of antibiotics, especially azithromycin. Rate is currently controlled. 4. Shortness of breath with pleural effusion. Previous echo has shown intact left ventricle. BNP mildly elevated at over 300. a. We will check echo this admission. 5. Diabetes mellitus. a. Resume usual Lantus, especially in the face of steroids, plus sliding scale NovoLog. b. Void metformin while he is here. 6. Deep venous thrombosis prophylaxis with DANNY hose. Encourage the patient to ambulate in the room. 7. FULL CODE STATUS. TD: 11/20/2017 07:16
[2017-11-20] MEDS: FUROSEMIDE 20 MG TABLET PO SCH (13:26)
[2017-11-20] MEDS ORDERED: INSULIN ASPART 300 UNIT/3 ML PEN SUBQ ONE (17:00)
[2017-11-20] MEDS: INSULIN ASPART 300 UNIT/3 ML PEN SUBQ SCH ×2 (17:05→21:56)
[2017-11-20] MEDS ORDERED: ATORVASTATIN 10 MG TABLET PO SCH (21:00)
[2017-11-20] MEDS ORDERED: LATANOPROST 0.005% OPHTH DROPS EACHEYE SCH (21:00)
[2017-11-20] MEDS: INSULIN GLARGINE 300 UNIT/3 ML PEN SUBQ SCH (21:21)
[2017-11-20] MEDS ORDERED: SODIUM CHLORIDE FLUSH 0.9% 10 ML SYRINGE ONE (21:22)
[2017-11-20] MEDS ORDERED: INSULIN REGULAR HUMAN 100 UNIT/1 ML 10 ML MDV IVP STA (21:26)
[2017-11-20] MEDS: TIMOLOL 0.5% OPHTH DROPS EACHEYE SCH (21:29)
[2017-11-21] MEDS: methylPREDNISolone SUCCINATE 40 MG/ML VIAL IVP SCH (05:41)
[2017-11-21] MEDS: SODIUM CHLORIDE FLUSH 0.9% 10 ML SYRINGE IVP PRN (05:45)
[2017-11-21 05:54] LABS: BASOPHILS % (AUTO) 0.2 %; HGB - HEMOGLOBIN 11.9 g/dL (14.0-18.0); LYMPHOCYTES # (AUTO) 1.5 10^3/uL (1.5-3.5); LYMPHOCYTES % (AUTO) 10.5 %; MEAN CORPUSCULAR HEMOGLOBIN 30.4 pg (27.0-31.0); MEAN CORPUSCULAR HGB CONC 33.6 g/dL (32.0-36.0); MEAN CORPUSCULAR VOLUME 90.5 fL (80.0-94.0); MEAN PLATELET VOLUME 6.9 fL (7.4-11.4); MONOCYTES # (AUTO) 0.8 10^3/uL (0.0-1.0); MONOCYTES % (AUTO) 5.9 %; NEUTROPHILS # (AUTO) 11.7 10^3/uL (1.5-6.6); NEUTROPHILS % (AUTO) 83.4 %; PLT - PLATELET COUNT 261 10^3/uL (130-450); RED BLOOD COUNT 3.92 10^6/uL (4.70-6.10); RED CELL DISTRIBUTION WIDTH 13.3 % (12.0-15.0)
[2017-11-21 05:57] LABS: CALCIUM 8.6 mg/dL (8.5-10.3); CREATININE 0.8 mg/dL (0.6-1.2)
[2017-11-21] MEDS ORDERED: cefTRIAXone 2 GM in SODIUM CHLORIDE 0.9% MINIBAG 100 ML IV SCH (06:00)
[2017-11-21] MEDS ORDERED: LEVOTHYROXINE 100 MCG TABLET PO SCH (07:00)
[2017-11-21] MEDS ORDERED: LEVOTHYROXINE 75 MCG TABLET PO SCH (07:00)
[2017-11-21 07:43] VITALS: BP 126/82
[2017-11-21] MEDS: LOSARTAN 50 MG TABLET PO SCH (08:00)
[2017-11-21] MEDS: ISOSORBIDE MONONITRATE ER 30 MG TABLET PO SCH (08:00)
[2017-11-21] MEDS: SACCHAROMYCES BOULARDII 250 MG CAPSULE PO SCH (08:01)
[2017-11-21] MEDS: FUROSEMIDE 20 MG TABLET PO SCH (08:01)
[2017-11-21] MEDS: CARVEDILOL 12.5 MG TABLET PO SCH (08:03)
[2017-11-21] MEDS: BRIMONIDINE 0.15% OPHTH DROPS 5 ML RIGHTEYE SCH (08:06)
[2017-11-21] MEDS: TIMOLOL 0.5% OPHTH DROPS EACHEYE SCH (08:06)
[2017-11-21] MEDS: INSULIN GLARGINE 300 UNIT/3 ML PEN SUBQ SCH (08:09)
[2017-11-21] MEDS: INSULIN ASPART 300 UNIT/3 ML PEN SUBQ SCH (08:09)
[2017-11-21] MEDS: POLYETHYLENE GLYCOL 3350 17 GM PACKET PO SCH (08:10)
[2017-11-21] MEDS: SODIUM CHLORIDE FLUSH 0.9% 10 ML SYRINGE IVP SCH (08:10)
[2017-11-21] MEDS: AZITHROMYCIN INJ 500 MG in SODIUM CHLORIDE 0.9% 250 ML IV SCH (08:10)
[2017-11-21 09:24] LABS: INR 2.6 (0.8-1.2); PT - PROTHROMBIN TIME 27.8 secs (9.9-12.6)
--- NOTE | 2017-11-21 10:13 | Discharge Plan ---
Discharge Plan Disposition: Home, Self Care Condition: Poor Prescriptions: Amox/Clav 875/125 [Augmentin] 1 each PO Q12H #10 tablet Furosemide [Lasix] 20 mg PO DAILY #10 tablet predniSONE [Deltasone] 10 mg PO [id number] #11 tab Saccharomyces Boulardii [Florastor] 250 mg PO DAILY #5 capsule Spironolactone 12.5 mg PO DAILY #10 tablet Diet: Regular Activity Restrictions: Activity as Tolerated Shower Restrictions: No (fall precaution, caregiver closely monitor) Weight Bearing: Full Weight Instruction Topics: Heart Failure, Pneumonia, Furosemide tablets, Spironolactone tablets, Amoxicillin Clavulanic Acid tablets, Prednisone tablets Additional Instructions or Follow Up instructions: You may follow up your PCP in 3/4 days, may have PT/INR check since you are on antibiotics in 3/4 days, may have CMP check since you have new medication Lasix and Spironolactone in 3/4 days. Should your symptoms return or worsen, you may present ER or call 911 for help. Follow-Up Care: [facility] - Cardiac No Smoking: If you smoke, Please STOP! Call for help. Follow-up with: Jethro Shelley MD [Primary Care Provider] -
--- NOTE | 2017-11-21 10:24 | DISCHARGE SUMMARY ---
Discharge Summary Discharge Date: 11/21/17 Discharging Provider: [place] Primary Care Provider: Dr. Shelley Condition at Discharge: Poor Discharge Disposition: Home, Self Care Discharge Facility Name: home - DIAGNOSES Admission Diagnoses: (1) Pneumonia (2) HTN (hypertension) (3) Afib (4) Diabetes 1.5, managed as type 2 (6) Hypothyroidism (7) Glaucoma Discharge Diagnoses with Status of Each Condition: (1) Pneumonia after treatment, pt has significantly clinic improved. No fever,chill, cough, SOB, wheezing. Room air with 95% Sats. pt request to be d/c to home. pt state today his two grand daughters are graduated, he will join. augmentin is prescribed to pt for finishing of the antibiotics course. (2) HTN (hypertension) stable (3) Afib stable HR. pt took antibiotics which can affect Coumadin metabolize, and affect PT/INR. Pt is advised to have PT/INR test in following visit of his PCP (4) Diabetes 1.5, managed as type 2 stable glucose level after resume home insulin. continue to be managed by PCP (6) Hypothyroidism stable, TSH normal (7) Glaucoma stable, continue home meds and managed by his lighter (8) systolic CHF ECHO reveals 45-50%, mild impaired systolic CHF. CXR reveals pulmonary vascular congestion. Pt was prescribed Lasix in the hospital. Clinically pt had significantly improved. pt also present mild edema at his low extremities. pt is prescribed Lasix and spironolactone. Pt is advised to follow up CMP test in the next visit to his PCP - HPI History of Present Illness: refer from Dr. Ahn's HPI for pt. - ALLERGIES Allergies/Adverse Reactions: Allergies Allergy/AdvReac Type Severity Reaction Status Date / Time Shrimp Allergy Mild Nausea Uncoded 10/23/17 15:02 - MEDICATIONS Home Medications: Ambulatory Orders Medication Instructions Recorded Confirmed Insulin Glargine,Hum.rec.anlog 50 - 70 unit SQ QPM 02/08/13 11/20/17 [Lantus] Warfarin Sodium [Coumadin] 5 mg PO .[id number] 02/08/13 11/20/17 Carvedilol 25 mg PO BID 10/26/14 11/20/17 Losartan [Cozaar] 100 mg PO DAILY 10/26/14 11/20/17 Nitroglycerin 0.4 mg SL ONCE #1 bot 10/23/17 11/20/17 Brimonidine 0.15% Ophth Drops 1 drops RIGHTEYE BID 11/20/17 11/20/17 [Alphagan P 0.15% Ophth Drops] Insulin Lispro [Humalog Kwikpen 1 - 10 unit SUBQ TID PRN 11/20/17 11/20/17 U-100] Isosorbide Mononitrate [Isosorbide 60 mg PO DAILY 11/20/17 11/20/17 Mononitrate ER] Latanoprost 1 drops EACHEYE QPM 11/20/17 11/20/17 Levothyroxine Sodium [Synthroid] 175 mcg PO DAILY 11/20/17 11/20/17 Metformin HCl 1,000 mg PO BID 11/20/17 11/20/17 Simvastatin 40 mg PO QPM 11/20/17 11/20/17 Timolol Maleate 1 drops EACHEYE BID 11/20/17 11/20/17 Warfarin [Coumadin] 2.5 mg PO .QFRIDAY 11/20/17 11/20/17 Zolpidem Tartrate [Ambien] 10 mg PO QPM 11/20/17 11/20/17 Amox/Clav 875/125 [Augmentin] 1 each PO Q12H #10 tablet 11/21/17 Furosemide [Lasix] 20 mg PO DAILY #10 tablet 11/21/17 Nitroglycerin [Nitrostat] 0.4 mg SL Q5MIN PRN #20 tablet 11/21/17 Saccharomyces Boulardii [Florastor] 250 mg PO DAILY #5 capsule 11/21/17 Spironolactone 12.5 mg PO DAILY #10 tablet 11/21/17 predniSONE [Deltasone] 10 mg PO [id number] #11 tab 11/21/17 - PHYSICAL EXAM AT DISCHARGE General Appearance: positive: No acute distress, Alert. negative: Lethargic Eyes Bilateral: positive: Normal inspection, PERRL, No lid inflammation, Conjunctivae nml ENT: positive: ENT inspection nml, Pharynx nml, No signs of dehydration. negative: Purulent nasal drainage, Pharyngeal erythema, Oral lesions Neck: positive: Nml inspection, Thyroid nml, No JVD, Trachea midline. negative : Thyromegaly, Lymphadenopathy (R), Lymphadenopathy (L), Stiff neck, Swelling/ bruising, Tracheal deviation Respiratory: positive: Chest non-tender, No respiratory distress, Breath sounds nml. negative: Wheezes, Rales, Rhonchi Cardiovascular: positive: Regular rate & rhythm, No murmur, No gallop. negative : Irregularly irregular, Extrasystoles, Tachycardia, Bradycardia, JVD present, Systolic murmur, Diastolic murmur Peripheral Pulses: positive: 2+ Abdomen: positive: Non-tender, No organomegaly, Nml bowel sounds, No distention. negative: Tenderness, Guarding, Rebound Back: positive: Nml inspection. negative: CVA tenderness (R), CVA tenderness (L ) Skin: positive: Color nml, No rash, Warm, Dry. negative: Cyanosis, Diaphoresis , Pallor Extremities: positive: Non-tender, Full ROM, Nml appearance. negative: Calf tenderness, Joint swelling, Everton's sign/cords Neurologic/Psychiatric: positive: Oriented x3, Motor nml, Sensation nml, Mood/ affect nml. negative: Sensory loss, Facial droop, Slurred/abnml speech, Depressed mood/affect - LABS Result Diagrams: 11/21/17 05:30 11/21/17 05:30 - FOLLOW UP Follow Up: You may follow up your PCP in 3/4 days, may have PT/INR check when you visit your PCP. you started on antibiotics. You may have CMP check when you visit your PCP. you start new medication Lasix and Spironolactone. Should your symptoms return or worsen, you may present ER or call 911 for help. - TIME SPENT Time Spent in Discharge (Minutes): 50
== END 2017-11-21 12:37 | disposition home or self-care (01) ==
LOC: ED 05:21 → MS2 06:25
PROVIDERS: ADMIT Specialist; ATTEND Nurse Practitioner Gerontology
DX: J18.9 Pneumonia, unspecified organism (principal); J44.1 Chronic obstructive pulmonary disease with (acute) exacerbation; I48.2 Chronic atrial fibrillation; E03.9 Hypothyroidism, unspecified; I20.9 Angina pectoris, unspecified; I11.0 Hypertensive heart disease with heart failure; I50.20 Unspecified systolic (congestive) heart failure; E11.42 Type 2 diabetes mellitus with diabetic polyneuropathy; E11.319 Type 2 diabetes mellitus with unspecified diabetic retinopathy without macular edema; H40.9 Unspecified glaucoma; Z66 Do not resuscitate; Z79.4 Long term (current) use of insulin; Z79.01 Long term (current) use of anticoagulants; Z79.899 Other long term (current) drug therapy; Z87.891 Personal history of nicotine dependence
CPT/HCPCS: 36415; 71046; 80048; 80053; 83036; 83605; 83690; 83880; 84443; 84484; 85025; 85610; 87040; 87070; 87205; 93005; 93306; 94640; 96361; 96365; 96366; 96367; 96375; 96376; 99283; 99284; A9270; G0378; J1815

== ENCOUNTER 2017-12-05 11:50 | Outpatient (CLI) | payer MEDICARE, OTHER | END 2017-12-05 11:51 | disposition home or self-care (01) | LOC: LAB.WCP 11:50 | PROVIDERS: ATTEND Family Medicine | DX: E03.9 Hypothyroidism, unspecified (principal) | CPT/HCPCS: 36415; 84443 ==

== ENCOUNTER 2018-08-18 08:00 | Outpatient (CLI) | payer MEDICARE, OTHER | END 2018-08-18 23:59 | disposition home or self-care (01) | LOC: LAB.WCP 08:00 | PROVIDERS: ATTEND Physician Assistant Medical | DX: I48.91 Unspecified atrial fibrillation (principal); Z79.01 Long term (current) use of anticoagulants ==

== ENCOUNTER 2018-09-15 08:00 | Outpatient (CLI) | payer MEDICARE, OTHER | END 2018-09-15 23:59 | disposition home or self-care (01) | LOC: LAB.WCP 08:00 | PROVIDERS: ATTEND Physician Assistant Medical | DX: I48.91 Unspecified atrial fibrillation (principal); Z79.01 Long term (current) use of anticoagulants ==

== ENCOUNTER 2018-12-15 08:00 | Outpatient (CLI) | payer MEDICARE, OTHER | END 2018-12-15 08:01 | disposition home or self-care (01) | LOC: LAB.WCP 08:00 | PROVIDERS: ATTEND Physician Assistant Medical | DX: I48.91 Unspecified atrial fibrillation (principal); Z79.01 Long term (current) use of anticoagulants ==

== ENCOUNTER 2019-01-12 08:00 | Outpatient (CLI) | payer MEDICARE, OTHER | END 2019-01-12 23:59 | disposition home or self-care (01) | LOC: LAB.WCP 08:00 | PROVIDERS: ATTEND Physician Assistant Medical | DX: I48.91 Unspecified atrial fibrillation (principal); Z79.01 Long term (current) use of anticoagulants ==

== ENCOUNTER 2019-01-26 08:00 | Outpatient (CLI) | payer MEDICARE, OTHER | END 2019-01-26 23:59 | disposition home or self-care (01) | LOC: LAB.WCP 08:00 | PROVIDERS: ATTEND Physician Assistant | DX: I48.91 Unspecified atrial fibrillation (principal); Z79.01 Long term (current) use of anticoagulants ==

== ENCOUNTER 2019-02-23 08:00 | Outpatient (CLI) | payer MEDICARE, OTHER | END 2019-02-23 23:59 | disposition home or self-care (01) | LOC: LAB.WCP 08:00 | PROVIDERS: ATTEND Physician Assistant Medical | DX: I48.91 Unspecified atrial fibrillation (principal); Z79.01 Long term (current) use of anticoagulants ==

== ENCOUNTER 2019-03-05 08:00 | Outpatient (CLI) | payer MEDICARE, OTHER ==
[2019-03-05 12:33] LABS: CALCIUM 8.8 mg/dL (8.5-10.3)
[2019-03-05 12:34] LABS: HB2 TOTAL 14.8 g/dL; HEMOGLOBIN A1C 0.69 g/dL; HEMOGLOBIN A1C % 6.4 % (4.6-6.2)
== END 2019-03-05 23:59 | disposition home or self-care (01) ==
LOC: LAB.WCP 08:00
PROVIDERS: ATTEND Physician Assistant Medical
DX: E11.9 Type 2 diabetes mellitus without complications (principal)
CPT/HCPCS: 36415; 80048; 83036

== ENCOUNTER 2019-03-09 08:00 | Outpatient (CLI) | payer MEDICARE, OTHER | END 2019-03-09 23:59 | disposition home or self-care (01) | LOC: LAB.WCP 08:00 | PROVIDERS: ATTEND Physician Assistant Medical | DX: I48.91 Unspecified atrial fibrillation (principal); Z79.01 Long term (current) use of anticoagulants ==

== ENCOUNTER 2019-03-30 08:00 | Outpatient (CLI) | payer MEDICARE, OTHER | END 2019-03-30 23:59 | disposition home or self-care (01) | LOC: LAB.WCP 08:00 | PROVIDERS: ATTEND Family Medicine | DX: I48.91 Unspecified atrial fibrillation (principal); Z79.01 Long term (current) use of anticoagulants ==

== ENCOUNTER 2019-04-27 08:00 | Outpatient (CLI) | payer MEDICARE, OTHER | END 2019-04-27 23:59 | disposition home or self-care (01) | LOC: LAB.WCP 08:00 | PROVIDERS: ATTEND Physician Assistant Medical | DX: I48.91 Unspecified atrial fibrillation (principal); Z79.01 Long term (current) use of anticoagulants ==

== ENCOUNTER 2019-06-03 09:46 | Outpatient (CLI) | payer MEDICARE, OTHER ==
[2019-06-03 12:23] LABS: ALBUMIN 4.5 g/dL (3.2-5.5); ALBUMIN/GLOBULIN RATIO 1.6 (1.0-2.2); ALKALINE PHOSPHATASE 49 IU/L (42-121); ALT ALANINE AMINOTRANSFERASE 21 IU/L (10-60); AST ASPARTATE AMINOTRANSFERASE 24 IU/L (10-42); BILIRUBIN,TOTAL 1.1 mg/dL (0.2-1.0); BUN - BLOOD UREA NITROGEN 32 mg/dL (6-20); CALCIUM 9.1 mg/dL (8.5-10.3); CARBON DIOXIDE - CO2 26 mmol/L (21-32); CHLORIDE 102 mmol/L (101-111); CHOL/HDL RATIO 2.6 (<5.0); CHOLESTEROL 113 mg/dL; CREATININE 1.2 mg/dL (0.6-1.2); GFR - MDRD 58 (>89); GLUCOSE 85 mg/dL (70-100); HDL CHOLESTEROL 43 mg/dL; LDL CHOLESTEROL,CALCULATED 52 mg/dL; LDL/HDL RATIO 1.2 (<3.6); SODIUM 139 mmol/L (135-145); TOTAL PROTEIN 7.3 g/dL (6.7-8.2); VLDL CHOLESTEROL 18 mg/dL
[2019-06-03 12:24] LABS: HB2 TOTAL 14.3 g/dL; HEMOGLOBIN A1C 0.74 g/dL; HEMOGLOBIN A1C % 6.9 % (4.6-6.2)
[2019-06-03 13:08] LABS: FREE T4 (FREE THYROXINE) 0.73 ng/dL (0.58-1.64)
== END 2019-06-03 23:59 | disposition home or self-care (01) ==
LOC: LAB.WCP 09:46
PROVIDERS: ATTEND Physician Assistant Medical
DX: E03.9 Hypothyroidism, unspecified (principal); E11.9 Type 2 diabetes mellitus without complications
CPT/HCPCS: 36415; 80053; 80061; 83036; 83721; 84439; 84443

== ENCOUNTER 2019-06-30 08:00 | Outpatient (CLI) | payer MEDICARE, OTHER | END 2019-06-30 23:59 | disposition home or self-care (01) | LOC: LAB.WCP 08:00 | PROVIDERS: ATTEND Physician Assistant Medical | DX: Z79.01 Long term (current) use of anticoagulants (principal); I48.91 Unspecified atrial fibrillation ==

== ENCOUNTER 2019-07-06 08:00 | Outpatient (CLI) | payer MEDICARE, OTHER | END 2019-07-06 23:59 | disposition home or self-care (01) | LOC: LAB.WCP 08:00 | PROVIDERS: ATTEND Physician Assistant Medical | DX: Z79.01 Long term (current) use of anticoagulants (principal); I48.91 Unspecified atrial fibrillation ==

== ENCOUNTER 2019-07-13 08:00 | Outpatient (CLI) | payer MEDICARE, OTHER | END 2019-07-13 23:59 | disposition home or self-care (01) | LOC: LAB.WCP 08:00 | PROVIDERS: ATTEND Physician Assistant Medical | DX: Z79.01 Long term (current) use of anticoagulants (principal); I48.91 Unspecified atrial fibrillation ==

== ENCOUNTER 2019-07-27 08:00 | Outpatient (CLI) | payer MEDICARE, OTHER | END 2019-07-27 23:59 | disposition home or self-care (01) | LOC: LAB.WCP 08:00 | PROVIDERS: ATTEND Physician Assistant Medical | DX: I48.91 Unspecified atrial fibrillation (principal); Z79.01 Long term (current) use of anticoagulants ==

== ENCOUNTER 2019-08-17 08:00 | Outpatient (CLI) | payer MEDICARE, OTHER | END 2019-08-17 23:59 | disposition home or self-care (01) | LOC: LAB.WCP 08:00 | PROVIDERS: ATTEND Physician Assistant Medical | DX: I48.91 Unspecified atrial fibrillation (principal); Z79.01 Long term (current) use of anticoagulants ==

== ENCOUNTER 2019-11-25 08:00 | Outpatient (CLI) | payer MEDICARE, OTHER ==
[2019-11-25 19:17] LABS: HB2 TOTAL 14.2 g/dL; HEMOGLOBIN A1C 0.69 g/dL; HEMOGLOBIN A1C % 6.6 % (4.6-6.2)
[2019-11-25 19:19] LABS: CREATININE 0.9 mg/dL (0.6-1.2)
[2019-11-25 19:32] LABS: CALCIUM 9.3 mg/dL (8.5-10.3)
== END 2019-11-25 23:59 | disposition home or self-care (01) ==
LOC: LAB.WCP 08:00
PROVIDERS: ATTEND Physician Assistant Medical
DX: E11.9 Type 2 diabetes mellitus without complications (principal)
CPT/HCPCS: 36415; 80048; 83036; 84443

== ENCOUNTER 2020-05-26 08:00 | Outpatient (CLI) | payer MEDICARE, OTHER ==
[2020-05-26 12:17] LABS: BASOPHILS % (AUTO) 0.4 %; EOSINOPHILS # (AUTO) 0.2 10^3/uL (0.0-0.7); LYMPHOCYTES # (AUTO) 3.4 10^3/uL (1.5-3.5); LYMPHOCYTES % (AUTO) 40.3 %; MEAN CORPUSCULAR HEMOGLOBIN 30.2 pg (27.0-31.0); MEAN CORPUSCULAR HGB CONC 32.5 g/dL (32.0-36.0); MEAN CORPUSCULAR VOLUME 92.9 fL (80.0-94.0); MEAN PLATELET VOLUME 9.9 fL (7.4-11.4); MONOCYTES # (AUTO) 0.7 10^3/uL (0.0-1.0); MONOCYTES % (AUTO) 8.6 %; NEUTROPHILS # (AUTO) 4.1 10^3/uL (1.5-6.6); NEUTROPHILS % (AUTO) 48.5 %; PLT - PLATELET COUNT 197 10^3/uL (130-450); RED BLOOD COUNT 4.64 10^6/uL (4.70-6.10); RED CELL DISTRIBUTION WIDTH 12.8 % (12.0-15.0); WHITE BLOOD COUNT 8.5 x10^3/uL (4.8-10.8)
[2020-05-26 13:03] LABS: ALBUMIN 4.5 g/dL (3.2-5.5); ALBUMIN/GLOBULIN RATIO 1.5 (1.0-2.2); ALKALINE PHOSPHATASE 55 IU/L (42-121); ALT ALANINE AMINOTRANSFERASE 21 IU/L (10-60); AST ASPARTATE AMINOTRANSFERASE 21 IU/L (10-42); BUN - BLOOD UREA NITROGEN 21 mg/dL (6-20); CALCIUM 9.1 mg/dL (8.5-10.3); CARBON DIOXIDE - CO2 26 mmol/L (21-32); CHLORIDE 105 mmol/L (101-111); CHOL/HDL RATIO 2.2 (<5.0); CHOLESTEROL 91 mg/dL; GLUCOSE 83 mg/dL (70-100); HDL CHOLESTEROL 42 mg/dL; LDL CHOLESTEROL,CALCULATED 38 mg/dL; LDL/HDL RATIO 0.9 (<3.6); SODIUM 139 mmol/L (135-145); TOTAL PROTEIN 7.6 g/dL (6.7-8.2); VLDL CHOLESTEROL 11 mg/dL
[2020-05-26 13:34] LABS: HEMOGLOBIN A1c% 6.7 % (4.27-6.07)
[2020-05-26 13:49] LABS: CREATININE,URINE 94.8 mg/dL; MICROALBUM/CREATININE RATIO,UR 71.7 ug/mg (<30.0); MICROALBUMIN,URINE 6.8 mg/dL (0-300.0)
[2020-05-26 14:00] LABS: FREE T4 (FREE THYROXINE) 2.11 ng/dL (0.58-1.64)
== END 2020-05-26 23:59 | disposition home or self-care (01) ==
LOC: LAB.WCP 08:00
PROVIDERS: ATTEND Physician Assistant Medical
DX: I10 Essential (primary) hypertension (principal); E78.5 Hyperlipidemia, unspecified; E11.9 Type 2 diabetes mellitus without complications; E03.9 Hypothyroidism, unspecified; G47.00 Insomnia, unspecified
CPT/HCPCS: 36415; 80053; 80061; 82043; 82570; 83036; 83721; 84439; 84443; 85025

== ENCOUNTER 2020-07-10 08:00 | Outpatient (CLI) | payer MEDICARE, OTHER | END 2020-07-10 23:59 | disposition home or self-care (01) | LOC: LAB.WCP 08:00 | PROVIDERS: ATTEND Physician Assistant Medical | DX: E03.9 Hypothyroidism, unspecified (principal) | CPT/HCPCS: 36415; 84439; 84443 ==

== ENCOUNTER 2020-08-15 07:00 | Outpatient (CLI) | payer MEDICARE, OTHER ==
[2020-08-15 18:43] LABS: THYROID STIMULATING HORMONE 0.01 uIU/mL (0.34-5.60)
[2020-08-15 19:26] LABS: FREE T4 (FREE THYROXINE) 1.8 ng/dL (0.58-1.64)
== END 2020-08-15 23:59 | disposition home or self-care (01) ==
LOC: LAB.WCP 07:00
PROVIDERS: ATTEND Physician Assistant Medical
DX: E03.9 Hypothyroidism, unspecified (principal)
CPT/HCPCS: 36415; 84439; 84443

== ENCOUNTER 2020-08-23 08:00 | Outpatient (CLI) | payer MEDICARE, OTHER | END 2020-08-23 23:59 | disposition home or self-care (01) | LOC: LAB.WCP 08:00 | PROVIDERS: ATTEND Physician Assistant Medical | DX: I48.91 Unspecified atrial fibrillation (principal) ==

== ENCOUNTER 2020-08-25 08:00 | Outpatient (CLI) | payer MEDICARE, OTHER ==
[2020-08-25 19:10] LABS: THYROID STIMULATING HORMONE 0.03 uIU/mL (0.34-5.60)
[2020-08-25 19:47] LABS: FREE T4 (FREE THYROXINE) 1.44 ng/dL (0.58-1.64)
== END 2020-08-25 23:59 | disposition home or self-care (01) ==
LOC: LAB.WCP 08:00
PROVIDERS: ATTEND Physician Assistant Medical
DX: E03.9 Hypothyroidism, unspecified (principal)
CPT/HCPCS: 36415; 84439; 84443

== ENCOUNTER 2020-11-22 08:00 | Outpatient (CLI) | payer MEDICARE, OTHER ==
[2020-11-22 11:51] LABS: BASOPHILS % (AUTO) 0.4 %; EOSINOPHILS # (AUTO) 0.2 10^3/uL (0.0-0.7); EOSINOPHILS % (AUTO) 2.3 %; HCT - HEMATOCRIT 40.5 % (42.0-52.0); HGB - HEMOGLOBIN 13.4 g/dL (14.0-18.0); LYMPHOCYTES # (AUTO) 2.7 10^3/uL (1.5-3.5); LYMPHOCYTES % (AUTO) 35.4 %; MEAN CORPUSCULAR HEMOGLOBIN 30.9 pg (27.0-31.0); MEAN CORPUSCULAR HGB CONC 33.1 g/dL (32.0-36.0); MEAN CORPUSCULAR VOLUME 93.3 fL (80.0-94.0); MEAN PLATELET VOLUME 9.8 fL (7.4-11.4); MONOCYTES # (AUTO) 0.6 10^3/uL (0.0-1.0); MONOCYTES % (AUTO) 8.2 %; NEUTROPHILS % (AUTO) 53.4 %; PLT - PLATELET COUNT 175 10^3/uL (130-450); RED BLOOD COUNT 4.34 10^6/uL (4.70-6.10); RED CELL DISTRIBUTION WIDTH 12.3 % (12.0-15.0); WHITE BLOOD COUNT 7.5 x10^3/uL (4.8-10.8)
[2020-11-22 12:28] LABS: ALBUMIN 4.6 g/dL (3.2-5.5); ALBUMIN/GLOBULIN RATIO 1.8 (1.0-2.2); ALKALINE PHOSPHATASE 53 IU/L (42-121); ALT ALANINE AMINOTRANSFERASE 21 IU/L (10-60); AST ASPARTATE AMINOTRANSFERASE 22 IU/L (10-42); BILIRUBIN,TOTAL 0.9 mg/dL (0.2-1.0); BUN - BLOOD UREA NITROGEN 27 mg/dL (6-20); CALCIUM 9.1 mg/dL (8.5-10.3); CARBON DIOXIDE - CO2 25 mmol/L (21-32); CHLORIDE 100 mmol/L (101-111); CHOLESTEROL 83 mg/dL; CREATININE 1.1 mg/dL (0.6-1.2); GFR - MDRD 64 (>89); GLUCOSE 93 mg/dL (70-100); HDL CHOLESTEROL 42 mg/dL; POTASSIUM 4.4 mmol/L (3.5-5.0); SODIUM 135 mmol/L (135-145); TOTAL PROTEIN 7.2 g/dL (6.7-8.2); TRIGLYCERIDES 37 mg/dL
[2020-11-22 12:29] LABS: ESTIMATED AVERAGE GLUCOSE 140 mg/dL (70-100); HEMOGLOBIN A1c% 6.5 % (4.27-6.07)
[2020-11-22 12:34] LABS: THYROID STIMULATING HORMONE 0.08 uIU/mL (0.34-5.60)
[2020-11-22 12:38] LABS: CREATININE,URINE 99.4 mg/dL; MICROALBUM/CREATININE RATIO,UR 21.1 ug/mg (<30.0); MICROALBUMIN,URINE 2.1 mg/dL (0-300.0)
[2020-11-22 13:35] LABS: FREE T4 (FREE THYROXINE) 1.54 ng/dL (0.58-1.64)
== END 2020-11-22 23:59 | disposition home or self-care (01) ==
LOC: LAB.WCP 08:00
PROVIDERS: ATTEND Physician Assistant Medical
DX: E11.9 Type 2 diabetes mellitus without complications (principal); E03.9 Hypothyroidism, unspecified; E78.5 Hyperlipidemia, unspecified; I10 Essential (primary) hypertension
CPT/HCPCS: 36415; 80053; 80061; 82043; 82570; 83036; 83721; 84439; 84443; 85025

== ENCOUNTER 2021-02-22 06:54 | Day surgery (SDC) | payer MEDICARE, OTHER ==
[~2021-02-22 06:54] MED LIST: PROPARACAINE 0.5% OPHTH DROPS 15 ML ONE
[2021-02-22] MEDS ORDERED: LACTATED RINGERS 1,000 ML IV ONE (07:01)
[2021-02-22] MEDS ORDERED: BRIMONIDINE 0.2% OPHTH DROPS 5 ML ONE (07:12)
[2021-02-22] MEDS ORDERED: EPINEPHrine 1 MG/ML AMP ONE (07:12)
[2021-02-22] MEDS ORDERED: TRIAMCIN/MOXIFLOX OPHTHALMIC 0.6 ML VIAL IO ONE ×3 (07:12→09:05)
[2021-02-22] MEDS ORDERED: TIMOLOL 0.5% OPHTH DROPS ONE (07:13)
[2021-02-22] MEDS ORDERED: VANCOMYCIN OPHTHALMI 8MG/0.8ML 8 MG/0.8 ML SYRINGE IO ONE ×2 (07:13→09:13)
[2021-02-22] MEDS ORDERED: BSS/LIDOCAINE/EPINEPHRINE 1 ML SYRINGE ONE (07:13)
[2021-02-22] MEDS ORDERED: KETOROLAC 0.45% OPHTH DROPS ONE (07:34)
[2021-02-22] MEDS ORDERED: PROPARACAINE 0.5% OPHTH DROPS 15 ML ONE (07:34)
[2021-02-22] MEDS ORDERED: PHENYLEPHRINE 2.5% OPHTH 2 ML DROPS ONE (07:34)
[2021-02-22] MEDS ORDERED: CYCLOPENTOLATE 1% OPHTH DROPS 2 ML ONE (07:34)
[2021-02-22] MEDS ORDERED: MIDAZOLAM 2 MG/2 ML VIAL ONE (07:51)
[2021-02-22] MEDS ORDERED: fentaNYL 100 MCG/2 ML VIAL ONE (07:51)
--- NOTE | 2021-02-22 07:52 | ANESTHESIA ---
Pre-Anesthesia VS, & Labs - Diagnosis senile cataract - Procedure left cataract extraction with IOL Vital Signs: Temp Pulse Resp BP Pulse Ox 36 C L 65 18 142/61 H 100 02/22/21 07:06 02/22/21 07:06 02/22/21 07:06 02/22/21 07:06 02/22/21 07:06 Height: 5 ft 10 in Weight (kg): 79 kg Body Mass Index: 25.0 BMI Classification: Overweight - NPO >8 hours Home Medications and Allergies Insulin Glargine,Hum.rec.anlog [Lantus] 50 - 70 unit SQ QPM 02/08/13 Carvedilol 25 mg PO BID 10/26/14 Losartan [Cozaar] 100 mg PO DAILY 10/26/14 Brimonidine 0.15% Ophth Drops [Alphagan P 0.15% Ophth Drops] 1 drops RIGHTEYE BID 11/20/17 Insulin Lispro [Humalog Kwikpen U-100] 1 - 10 unit SUBQ TID PRN 11/20/17 Isosorbide Mononitrate [Isosorbide Mononitrate ER] 60 mg PO DAILY 11/20/17 Latanoprost 1 drops EACHEYE QPM 11/20/17 Levothyroxine Sodium [Synthroid] 137 mcg PO DAILY 11/20/17 Metformin HCl 1,000 mg PO BID 11/20/17 Simvastatin 40 mg PO QPM 11/20/17 Zolpidem Tartrate [Ambien] 10 mg PO QPM 11/20/17 timoloL maleate [Timolol Maleate] 1 drops EACHEYE BID 11/20/17 Allergies/Adverse Reactions: Allergies Allergy/AdvReac Type Severity Reaction Status Date / Time Shrimp Allergy Mild Nausea Uncoded 10/23/17 15:02 Anes History & Medical History - Anesthetic History Anesthesia Complications: reports: No previous complications - Medical History Cardiovascular: reports: Hypertension, Atrial fibrillation Pulmonary: reports: Pneumonia Gastrointestinal: reports: None Urinary: reports: None Musculoskeletal: reports: None Endocrine/Autoimmune: reports: Type 2 diabetes, HyPOthyroidism Blood Disorders: reports: None Skin: reports: None Smoking Status: Former smoker History of Cancer?: No - Surgical History General: reports: Hiatal hernia repair, Colonoscopy Eyes Ears Nose Throat (EENT): reports: Cataracts Exam General: Alert Dental: WNL Mouth Opening: Greater than 4 Fingerbreadths Neck Mobility: Normal Mallampati classification: II Respiratory: Lungs clear Cardiovascular: Regular rate Plan Anesthesia Type: MAC Consent for Procedure(s) Verified and Reviewed: Yes Code Status: Attempt Resuscitation ASA classification: 3-Severe systemic disease Is this case an emergency?: No
[2021-02-22] MEDS ORDERED: EPINEPHrine 1 MG/ML AMP IR ONE (09:00)
[2021-02-22] MEDS ORDERED: BRIMONIDINE 0.2% OPHTH DROPS 5 ML OPTH ONE (09:00)
[2021-02-22] MEDS ORDERED: TIMOLOL 0.5% OPHTH DROPS OPTH ONE (09:01)
[2021-02-22] MEDS ORDERED: CHONDR SULF/HYALURONATE SYRINGE IO ONE (09:01)
[2021-02-22] MEDS ORDERED: BSS/LIDOCAINE/EPINEPHRINE 1 ML SYRINGE IO ONE (09:05)
[2021-02-22] MEDS ORDERED: PROPARACAINE 0.5% OPHTH DROPS 15 ML EACHEYE ONE (09:06)
[2021-02-22] MEDS ORDERED: LACTATED RINGERS 700 ML IV ONE (09:26)
--- NOTE | 2021-02-22 09:35 | OPERATIVE REPORT ---
Operative Report - Other Other Information/Narrative: Date of Surgery: 02/22/21 Preop Dx: Visually significant cataract left eye. Cataract surgery was performed in the right eye on [id number]. Postop Dx: Same Procedure: Phacoemulsification with posterior chamber intraocular lens implant left eye Surgeon: Dr. Dave Sanchez Anesthesia: Monitored anesthesia care Complications: None Operative Indications: This is a 81-year-old M with progressive vision loss in the left eye due to 2+ nuclear sclerotic, 3+ cortical, and 1-2+ posterior subcapsular cataract. Best corrected visual acuity was 20/50 with glare to hand motion vision in the left eye. Indications for surgery were: - Overall decrease in vision - Difficulty seeing words on a computer screen - Difficulty reading - Difficulty seeing words, closed captions, or game scores on TV - Difficulty seeing street signs - Difficulty driving in low light or at night - Difficulty driving at night because of headlights from other vehicles - Difficulty with glare or bright lights in any situation - Difficulty tracking a golf ball - Decreased acuity with firearms The patient was consented at length concerning the risks and benefits of cataract surgery after which the patient expressed a desire to proceed with surgery. Operative Procedure: The patient was taken into OR#3 and placed under monitored anesthesia care. A surgical time-out was conducted confirming correct patient, correct procedure, and correct surgical site. The patient was given topical anesthesia and then prepped and draped in the usual sterile fashion. The eye was entered at the 6 and 3 oclock positions. Intracameral Shugarcaine was injected into the anterior chamber followed by a dispersive viscoelastic. A continuous-tear curvilinear capsulorhexis was performed. The nucleus was hydrodissected and phacoemulsified. The cortex was evacuated using automated infusion and aspiration. A cohesive viscoelastic was injected into the capsular bag and a 20.0 diopter intraocular lens was inserted into the bag. Infusion and aspiration were used to evacuate the viscoelastic materials from the eye. The wounds were hydrated and the eye inflated to physiologic pressure using balanced salt solution. Approximately 0.25ml of a mixture of triamcinolone and moxifloxacin was injected trans-sclerally into the vitreous in the inferotemporal quadrant using a 30 gauge cannula. An additional 0.55ml of a mixture of triamcinolone, moxifloxacin, and vancomycin was injected subconjunctivally in the superior quadrant for infection and inflammation prophylaxis. Wound integrity was checked with Weck-Joan sponges. The patient was taken from the operating room in good condition and given post-op instructions.
[2021-02-22 09:47] VITALS: BP 132/73
--- NOTE | 2021-02-22 11:27 | ANESTHESIA POST OP EVALUATION ---
Anesthesia Post Eval - Post Anesthesia Eval Vitals: Last Vital Signs Temp 36.3 C L 02/22/21 09:46 Pulse 60 02/22/21 09:46 Resp 16 02/22/21 09:46 BP 132/73 H 02/22/21 09:46 Pulse Ox 98 02/22/21 09:46 CV Function Including HR & BP: Stable Pain Control: Satisfactory Nausea & Vomiting: Negative Mental Status: Baseline Respiratory Status: Airway Patent Hydration Status: Satisfactory Anesthesia Complications: None
== END 2021-02-22 06:55 | disposition home or self-care (01) ==
LOC: SDS 06:54
PROVIDERS: ATTEND Ophthalmology
DX: E11.36 Type 2 diabetes mellitus with diabetic cataract (principal); H25.812 Combined forms of age-related cataract, left eye; I10 Essential (primary) hypertension; I48.91 Unspecified atrial fibrillation; E03.9 Hypothyroidism, unspecified; Z96.1 Presence of intraocular lens; Z79.4 Long term (current) use of insulin; Z79.899 Other long term (current) drug therapy; Z87.891 Personal history of nicotine dependence; Z87.01 Personal history of pneumonia (recurrent)
CPT/HCPCS: 66984; A9270; J3490; J7120; V2632

== ENCOUNTER 2021-03-01 09:00 | Outpatient (CLI) | payer MEDICARE, OTHER ==
[2021-03-01 12:36] LABS: ALBUMIN 4.4 g/dL (3.2-5.5); ALBUMIN/GLOBULIN RATIO 1.7 (1.0-2.2); BILIRUBIN,TOTAL 0.8 mg/dL (0.2-1.0); CALCIUM 9.4 mg/dL (8.5-10.3); CREATININE 0.9 mg/dL (0.6-1.2); POTASSIUM 4.3 mmol/L (3.5-5.0)
[2021-03-01 12:42] LABS: THYROID STIMULATING HORMONE 0.09 uIU/mL (0.34-5.60)
[2021-03-01 13:54] LABS: ESTIMATED AVERAGE GLUCOSE 146 mg/dL (70-100); HEMOGLOBIN A1c% 6.7 % (4.27-6.07)
[2021-03-01 14:23] LABS: FREE T4 (FREE THYROXINE) 1.43 ng/dL (0.58-1.64)
== END 2021-03-01 09:01 | disposition home or self-care (01) ==
LOC: LAB.WCP 09:00
PROVIDERS: ATTEND Physician Assistant Medical
DX: E03.9 Hypothyroidism, unspecified (principal); E11.9 Type 2 diabetes mellitus without complications
CPT/HCPCS: 36415; 80053; 83036; 84439; 84443

== ENCOUNTER 2021-05-29 13:00 | Outpatient (CLI) | payer MEDICARE, OTHER ==
[2021-05-29 18:55] LABS: ALBUMIN 4.4 g/dL (3.2-5.5); ALBUMIN/GLOBULIN RATIO 1.6 (1.0-2.2); ALKALINE PHOSPHATASE 60 IU/L (42-121); ALT ALANINE AMINOTRANSFERASE 21 IU/L (10-60); AST ASPARTATE AMINOTRANSFERASE 21 IU/L (10-42); BILIRUBIN,TOTAL 1.1 mg/dL (0.2-1.0); BUN - BLOOD UREA NITROGEN 33 mg/dL (6-20); CALCIUM 9.4 mg/dL (8.5-10.3); CARBON DIOXIDE - CO2 26 mmol/L (21-32); CHLORIDE 101 mmol/L (101-111); CHOL/HDL RATIO 2.3 (<5.0); CHOLESTEROL 93 mg/dL; CREATININE 1.2 mg/dL (0.6-1.2); GFR - MDRD 58 (>89); GLUCOSE 139 mg/dL (70-100); HDL CHOLESTEROL 41 mg/dL; LDL CHOLESTEROL,CALCULATED 37 mg/dL; LDL/HDL RATIO 0.9 (<3.6); POTASSIUM 4.5 mmol/L (3.5-5.0); SODIUM 140 mmol/L (135-145); TOTAL PROTEIN 7.1 g/dL (6.7-8.2); TRIGLYCERIDES 73 mg/dL; VLDL CHOLESTEROL 15 mg/dL
[2021-05-29 19:01] LABS: THYROID STIMULATING HORMONE 0.6 uIU/mL (0.34-5.60)
[2021-05-29 19:37] LABS: ESTIMATED AVERAGE GLUCOSE 154 mg/dL (70-100)
== END 2021-05-29 23:59 | disposition home or self-care (01) ==
LOC: LAB.WCP 13:00
PROVIDERS: ATTEND Physician Assistant Medical
DX: E03.9 Hypothyroidism, unspecified (principal); E11.9 Type 2 diabetes mellitus without complications
CPT/HCPCS: 36415; 80053; 80061; 83036; 83721; 84443

== ENCOUNTER 2021-10-15 11:10 | Outpatient (CLI) | payer MEDICARE, OTHER ==
[2021-10-15 18:20] LABS: CALCIUM 9.4 mg/dL (8.5-10.3); POTASSIUM 4.4 mmol/L (3.5-5.0)
[2021-10-15 18:28] LABS: THYROID STIMULATING HORMONE 3.49 uIU/mL (0.34-5.60)
[2021-10-15 20:34] LABS: ESTIMATED AVERAGE GLUCOSE 171 mg/dL (70-100); HEMOGLOBIN A1c% 7.6 % (4.27-6.07)
== END 2021-10-15 11:11 | disposition home or self-care (01) ==
LOC: LAB.N 11:10
PROVIDERS: ATTEND Physician Assistant Medical
DX: E11.9 Type 2 diabetes mellitus without complications (principal); E03.9 Hypothyroidism, unspecified
CPT/HCPCS: 36415; 80048; 83036; 84443

== ENCOUNTER 2022-06-26 13:56 | Outpatient (CLI) | payer MEDICARE, OTHER ==
[2022-06-26 18:19] LABS: CALCIUM 8.9 mg/dL (8.5-10.3); CREATININE 1.1 mg/dL (0.6-1.2); POTASSIUM 4.4 mmol/L (3.5-5.0)
[2022-06-26 20:33] LABS: ESTIMATED AVERAGE GLUCOSE 157 mg/dL (70-100); HEMOGLOBIN A1c% 7.1 % (4.27-6.07)
== END 2022-06-26 13:57 | disposition home or self-care (01) ==
LOC: LAB.N 13:56
PROVIDERS: ATTEND Physician Assistant Medical
DX: E11.9 Type 2 diabetes mellitus without complications (principal)
CPT/HCPCS: 36415; 80048; 83036

== ENCOUNTER 2023-02-03 13:13 | Outpatient (CLI) | payer MEDICARE, OTHER ==
[2023-02-03 18:58] LABS: ALBUMIN 4.4 g/dL (3.2-5.5); ALBUMIN/GLOBULIN RATIO 1.8 (1.0-2.2); ALKALINE PHOSPHATASE 62 IU/L (42-121); ALT ALANINE AMINOTRANSFERASE 14 IU/L (10-60); AST ASPARTATE AMINOTRANSFERASE 15 IU/L (10-42); BILIRUBIN,TOTAL 0.8 mg/dL (0.2-1.0); BUN - BLOOD UREA NITROGEN 33 mg/dL (6-20); CALCIUM 9.5 mg/dL (8.5-10.3); CARBON DIOXIDE - CO2 27 mmol/L (21-32); CHLORIDE 105 mmol/L (101-111); CHOLESTEROL 88 mg/dL; CREATININE 1.3 mg/dL (0.6-1.3); GFR - MDRD 52 (>89); GLUCOSE 137 mg/dL (74-104); HDL CHOLESTEROL 43 mg/dL; LDL CHOLESTEROL,CALCULATED 32 mg/dL; LDL/HDL RATIO 0.7 (<3.6); POTASSIUM 4.3 mmol/L (3.5-4.5); SODIUM 138 mmol/L (135-145); TOTAL PROTEIN 6.9 g/dL (6.4-8.9); TRIGLYCERIDES 64 mg/dL (48-352); VLDL CHOLESTEROL 13 mg/dL
[2023-02-03 19:03] LABS: THYROID STIMULATING HORMONE 2.04 uIU/mL (0.34-5.60)
[2023-02-03 20:40] LABS: ESTIMATED AVERAGE GLUCOSE 157 mg/dL (70-100); HEMOGLOBIN A1c% 7.1 % (4.27-6.07)
== END 2023-02-03 13:14 | disposition home or self-care (01) ==
LOC: LAB.N 13:13
PROVIDERS: ATTEND Physician Assistant Medical
DX: E78.5 Hyperlipidemia, unspecified (principal); E11.9 Type 2 diabetes mellitus without complications; E03.9 Hypothyroidism, unspecified
CPT/HCPCS: 36415; 80053; 80061; 83036; 83721; 84443

== ENCOUNTER 2024-02-03 08:05 | Outpatient (CLI) | payer MEDICARE, OTHER ==
[2024-02-03 12:33] LABS: ALBUMIN 4.2 g/dL (3.2-5.5); ALBUMIN/GLOBULIN RATIO 1.6 (1.0-2.2); ALKALINE PHOSPHATASE 53 IU/L (42-121); ALT ALANINE AMINOTRANSFERASE 14 IU/L (10-60); AST ASPARTATE AMINOTRANSFERASE 18 IU/L (10-42); BILIRUBIN,TOTAL 0.4 mg/dL (0.2-1.0); BUN - BLOOD UREA NITROGEN 37 mg/dL (6-20); CALCIUM 9.1 mg/dL (8.5-10.3); CARBON DIOXIDE - CO2 27 mmol/L (21-32); CHLORIDE 107 mmol/L (101-111); CHOL/HDL RATIO 1.6 (<5.0); CHOLESTEROL 92 mg/dL; CREATININE 1.6 mg/dL (0.6-1.3); GFR - MDRD 41 (>89); GLUCOSE 141 mg/dL (74-104); HDL CHOLESTEROL 56 mg/dL; LDL CHOLESTEROL,CALCULATED 25 mg/dL; LDL/HDL RATIO 0.4 (<3.6); POTASSIUM 4.3 mmol/L (3.5-4.5); SODIUM 140 mmol/L (135-145); TOTAL PROTEIN 6.9 g/dL (6.4-8.9); TRIGLYCERIDES 54 mg/dL; VLDL CHOLESTEROL 11 mg/dL
[2024-02-03 13:20] LABS: ESTIMATED AVERAGE GLUCOSE 148 mg/dL (70-100); HEMOGLOBIN A1c% 6.8 % (4.27-6.07)
== END 2024-02-03 08:06 | disposition home or self-care (01) ==
LOC: LAB.N 08:05
PROVIDERS: ATTEND Physician Assistant Medical
DX: E11.9 Type 2 diabetes mellitus without complications (principal)
CPT/HCPCS: 36415; 80053; 80061; 83036; 83721